=== PATIENT | female | born 1975 | race Two or more races ===

== ENCOUNTER → 2016-09-26 | Outpatient (CLI) | payer OTHER ==
--- NOTE | 2016-09-26 17:06 | DX ---
PA and lateral chest History: Cough for one month. Comparison: PA and lateral chest April 15, 2014. Findings: There is mild peribronchial thickening without focal consolidation. There is no pneumothora x or pleural effusion. The heart and pulmonary vasculature are normal. The bones are normal. Impression: Mild peribronchial thickening suggesting airways disease/bronchitis.
== END ==
LOC: BRMIMAGING 10:14
PROVIDERS: ATTEND Internal Medicine
DX: R05 Cough (principal)
CPT/HCPCS: 71020-PO